=== PATIENT | female | born 1965 | race Two or more races ===

== ENCOUNTER 2022-09-11 06:28 | Day surgery (SDC) | payer OTHER ==
[~2022-09-11] VITALS: Ht 160 cm; Wt 50.8 kg
[~2022-09-11 06:28] MED LIST: ANASTROZOLE1 MG PO; CALCIUM500 M2 PO; D & C GREEN #61 GM; LITHIUM CARBON450 MG PO; SYNTHROID75 MCG PO
== END 2022-09-11 15:05 | disposition home or self-care (01) ==
LOC: CIR.AMB 06:28
PROVIDERS: ATTEND Surgery
DX: C50.412 Malignant neoplasm of upper-outer quadrant of left female breast (principal); R59.0 Localized enlarged lymph nodes; Z91.041 Radiographic dye allergy status; Z88.0 Allergy status to penicillin; Z88.6 Allergy status to analgesic agent; Z90.12 Acquired absence of left breast and nipple